=== PATIENT | female | born 1975 | race Asian ===

== ENCOUNTER 2018-06-25 08:04 | Outpatient (CLI) | payer BC ==
--- NOTE | 2018-06-25 11:28 | ULT ---
PELVIC ULTRASOUND WITH DOPPLER: (Transabdominal, transvaginal, Ng scale, color flow, and spectral Doppler) Date: 06/25/18 HISTORY: 42-year-old female with dysfunctional uterine bleeding. FINDINGS: The uterus measures 9.1 x 6.4 x 7.5 cm. The endometrium measures 2.1 cm in thickness. The uterus is diffusely heterogeneous with a 2.4 cm mass consistent with fibroid. There is a complex hypoechoic area of the endometrial cavity measuring 1.3 cm. The right ovary measures 2.1 x 1.4 x 2.3 cm and demonstrates flow. The left ovary is not visualized. There is a small amount of free fluid in the pelvis. IMPRESSION: 1. Uterine fibroid. 2. Complex mass in the endometrial cavity measuring 1.3 cm. Gynecologic consultation is recommended. POS: [facility]
== END 2018-06-25 08:05 | disposition home or self-care (01) ==
LOC: SCSULT 08:04
PROVIDERS: ATTEND Student in an Organized Health Care Education/Training Program
DX: D50.9 Iron deficiency anemia, unspecified (principal); N93.8 Other specified abnormal uterine and vaginal bleeding; R53.83 Other fatigue; D25.9 Leiomyoma of uterus, unspecified; N85.8 Other specified noninflammatory disorders of uterus
CPT/HCPCS: 76856

== ENCOUNTER 2019-01-03 09:59 | Outpatient (CLI) | payer BC ==
--- NOTE | 2019-01-03 12:23 | ULT ---
ULTRASOUND ABDOMEN: Date: 01/03/19 HISTORY: 43-year-old female with abnormal liver function tests. FINDINGS: Liver demonstrates increased echogenicity consistent with fatty infiltration. No focal mass or intrah epatic ductal dilatation is seen. No gallstones, gallbladder wall thickening, or pericholecystic flui d are identified. The common duct measures 3.0 mm in diameter. The spleen is normal, measuring 10.2 c m in length. Both kidneys and visualized portions of the pancreas, IVC, and aorta are normal. No free fluid is seen. IMPRESSION: 1. Fatty liver. 2. No evidence of cholelithiasis. POS: [facility]
== END 2019-01-03 10:00 | disposition home or self-care (01) ==
LOC: SCSULT 09:59
DX: R94.5 Abnormal results of liver function studies (principal); K76.0 Fatty (change of) liver, not elsewhere classified
CPT/HCPCS: 76700